=== PATIENT | female | born 1945 | race Caucasian/White ===

== ENCOUNTER 2016-12-20 09:51 | Emergency (ER) | payer OTHER, MEDICARE ==
[2016-12-20] MEDS ORDERED: NS 1,000 ML IV ONE (10:07)
--- NOTE | 2016-12-20 10:07 | EDPHY ---
HPI/HX/ROS/PE/MDM Narrative: CHIEF COMPLAINT: Fall while hiking. HISTORY OF PRESENT ILLNESS: This patient is a non-anticoagulated 71 year old female arriving via EMS complaining of arm pain and head and neck pain secondary to a mechanical fall while hiking this morning. She fell from standing height and stuck out her hands to break her fall. She struck the front of her head on the ground as well. She denies loss of consciousness and remembers the entire event. She has pain in her right arm and fingers, left fingers, left shoulder, and the base of spine. She complains of a burning sensation radiating up her arms. She does have a c-collar in place. No visual changes or diplopia. She has some rib pain but states she bruised her ribs one month ago. No pain with deep inspiration. No abdominal pain. No complaints to legs, knees, ankles. She has not walked since her fall. No fever, chills, chest pain, shortness of breath, palpitations , vomiting, diarrhea, urinary complaints, headache, lightheadedness. REVIEW OF SYSTEMS: Aside from elements discussed in the HPI, a comprehensive 10-point review of systems was reviewed and is negative. PAST MEDICAL HISTORY: Cholecystectomy, Hysterectomy, Breast biopsy, Hip fracture SOCIAL HISTORY: Retired. Lives in [place]. . VITAL SIGNS: Reviewed by me; see NN. GENERAL: Well-developed, well-nourished, in no acute distress. HEENT: Head: Abrasion to left forehead, normocephalic. Face: Abrasion to left zygomatic area. PERRL, EOMI, no nystagmus. Oropharynx: No trauma, normal occlusion. Neck: Lower c-spine tenderness C4-C7, no adenopathy. C-collar in place. CHEST: Nontender, no subcutaneous air palpable. LUNGS: Clear to auscultation bilaterally, breath sounds are equal. CARDIAC: Regular rate and rhythm, no rubs, murmurs or gallops. ABDOMEN: Soft, nontender, nondistended, bowel sounds normal. BACK: No CVA tenderness, no spinal tenderness. No obvious trauma to left scapular area. EXTREMITIES: Abrasions on lateral aspect of left hand 5th and 4th digits, tenderness to palpation. Normal ROM, normal pulses. Abrasions on right hand, swelling across knuckles. Tenderness to right forearm, no obvious deformity. Swelling to distal wrist. PULSES: 2+ and equal throughout. NEURO: Alert and oriented x3, cranial nerves are intact throughout, normal motor , normal sensation. SKIN: Warm and dry, no rash. Portions of this note were transcribed by a clinical specialist medical device. I personally performed a history, physical exam, medical decision making, and confirmed accuracy of information the transcribed note. ED Course: 9:55 Met EMS at bedside. 71 y/o female presents with multiple abrasions and tenderness to the right forearm secondary to a mechanical fall shortly prior to arrival. The patient has lower c-spine tenderness and an abrasion to her forehead. Plan for CT head and cervical spine. Plan for right wrist, forearm, and hand x- ray, left hand x-ray. Plan to administer 1mg IV Dilaudid, 50mcg IV Fentanyl, 1L IV NS. Applied LET to abrasions. No acute osseous abnormalities noted on x-rays. 11:[address] Garrett, radiologist. CT Head and C-spine are negative acute fractures. Please see full report. Patient does have some degenerative disc disease as well as chronic ischemic changes on head CT. 12:21 Reassessed. Continues to complain of burning pain in hands and forearms bilaterally. Plan for MRI c-spine. 14:[address] Garrett, radiologist. MRI negative for acute processes. 14:44 Reassessed patient. Discussed imaging results. Plan to discharge home in good condition. Follow up and return precautions discussed. The patient is comfortable with this plan. MDM: Differential diagnosis of this patient's injury was considered including but not limited to intracranial injury, long bone and pelvic bone fracture, spinal injury, intrathoracic injury, extremity injury, intra-abdominal injury, lacerations, abrasions, and contusions. - Data Points Imaging Results: Imaging Impressions Cervical Spine CT 12/20/16 10:07 Impression: 1. No acute osseous abnormality seen about the cervical spine. 2. Degenerative disk disease mid to lower cervical spine with associated spinal and neuroforaminal stenoses. Findings discussed with Rosa Maria Robert MD at 1129 hour, 12/20/2016. Head CT 12/20/16 10:07 Impression: 1. Mild age-related atrophy. 2. No hemorrhage, mass effect, or definite acute peripheral infarct. 3. Progression of moderate nonspecific hypodensities in the white matter of bilateral cerebral hemispheres. Differential diagnosis includes microvascular ischemic disease, post-infectious/post-inflammatory sequela, atypical demyelinating disease, or migraine-related sequela. Small white matter lacunar infarcts may also have this appearance. 4. 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 Findings discussed with Rosa Maria Robert MD at 11:29 hour, 12/20/2016. If symptoms worsen, additional imaging may be necessary. Forearm X-Ray 12/20/16 10:08 Impression: 1. Marked degenerative changes right first carpometacarpal joint. 2. No acute osseous abnormality is seen about the right wrist and forearm. Hand X-Ray 12/20/16 10:08 Impression: 1. Marked degenerative changes at the first carpometacarpal joint that is symmetric. No acute osseous abnormality seen right or left hand. Hand X-Ray 12/20/16 10:08 Impression: 1. Marked degenerative changes at the first carpometacarpal joint that is symmetric. No acute osseous abnormality seen right or left hand. Wrist X-Ray 12/20/16 10:08 Impression: 1. Marked degenerative changes right first carpometacarpal joint. 2. No acute osseous abnormality is seen about the right wrist and forearm. Cervical Spine MRI 12/20/16 12:22 Impression: 1. 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 2. No acute abnormality seen about the cervical spine. Please see findings at specific disk levels. Findings communicated with the medical office coordinator with Rosa Maria Robert MD at 14 :35 hour, 12/20/2016. Imaging: Discussed imaging studies w/ call center operations manager Radiologist, I viewed and interpreted images myself Medications Given: Discontinued Medications Fentanyl (Sublimaze) 50 mcg IVP EDNOW ONE Stop: 12/20/16 10:19 Last Admin: 12/20/16 10:22 Dose: 100 mcg Gabapentin (Neurontin) 600 mg PO EDNOW ONE Stop: 12/20/16 14:47 Last Admin: 12/20/16 15:23 Dose: 600 mg Hydromorphone HCl (Dilaudid) 1 mg IVP EDNOW ONE Stop: 12/20/16 11:16 Last Admin: 12/20/16 11:33 Dose: 1 mg Hydromorphone HCl (Dilaudid) 1 mg IVP EDNOW ONE Stop: 12/20/16 12:46 Last Admin: 12/20/16 12:47 Dose: 1 mg Sodium Chloride (Ns) 1,000 mls @ 0 mls/hr IV ONCE ONE; Wide Open PRN Reason: Protocol Stop: 12/20/16 10:08 Last Admin: 12/20/16 10:22 Dose: 1,000 mls Ketorolac Tromethamine (Toradol) 30 mg IVP EDNOW ONE Stop: 12/20/16 14:46 Last Admin: 12/20/16 15:25 Dose: 30 mg Tetracaine/Epinephrine/Lidocaine (Let Gel Topical) 2 ea TP EDNOW ONE Stop: 12/20/16 10:12 Last Admin: 12/20/16 10:24 Dose: 1 ea General Initial Vital Signs: Initial Vital Signs Temperature (C) 36.8 C 12/20/16 09:51 Heart Rate 98 12/20/16 09:51 Respiratory Rate 20 12/20/16 09:51 Blood Pressure 179/106 H 12/20/16 09:51 O2 Sat (%) 95 12/20/16 09:51 O2 Delivery Mode Room Air O2 (L/minute) 2 Allergies/Adverse Reactions: iodine [Iodine] Allergy (Verified 04/27/14 19:18) meperidine HCl [From Demerol] Allergy (Verified 04/27/14 23:10) HYPERACTIVITY promethazine HCl [From Phenergan] Allergy (Verified 04/27/14 19:18) almonds Allergy (Intermediate, Uncoded 04/27/14 19:18) Hives Home Medications: Medication Instructions Recorded Ibuprofen [Motrin (*)] 600 mg PO DAILY PRN 02/23/13 QUEtiapine FUMARATE [Seroquel 25 50 mg PO HS 02/23/13 mg (*)] Venlafaxine HCl [Venlafaxine HCl 600 mg PO DAILY 02/23/13 ER] Cholecalciferol (Vitamin D3) 10,000 unit PO DAILY 07/27/14 [Vitamin D3] Valsartan/Hydrochlorothiazide 1 each PO DAILY 08/31/14 [Diovan Hct 160-25 mg Tablet] Nitrofurantoin Macrobid [Macrobid] 100 mg PO BID #10 cap 09/01/14 Gabapentin [Neurontin 300 MG (*)] 300 mg PO HS #7 cap 12/20/16 Departure - Departure Disposition: Home, Routine, Self-Care Clinical Impression: Abrasion, multiple sites, Multiple contusions Cervical strain Qualifiers: Encounter type: initial encounter Qualified Code(s): S16.1XXA - Strain of muscle, fascia and tendon at neck level, initial encounter Condition: Good Instructions: Cervical Strain (ED), Contusion in Adults (ED), Abrasion (ED) Additional Instructions: 1. Follow up with your primary care physician for continued concerns. 2. Mainstay of therapy is rest, pain/anti-inflammatory medication. Use ibuprofen 600 mg every 6-8 hours on a regular basis to provide pain relief and anti-inflammatory effects. 3. Take Gabapentin as prescribed for your burning sensation. 4. Return to the emergency department or seek care urgently if you have worsening pain, weakness, numbness or tingling, headache, or other concerns Referrals: Juju Hernandez MD [Primary Care Provider] - As per Instructions Prescriptions: Gabapentin [Neurontin 300 MG (*)] 300 mg PO HS #7 cap Report Scribed for: Rosa Maria Robert Report Scribed by: Italia Garcia Date of Report: 12/20/16 Time of Report: 12:14
[2016-12-20 10:09] VITALS: RESP 20
[2016-12-20] MEDS ORDERED: LET GEL TOPICAL 1 EA SYR TP ONE (10:11)
[2016-12-20] MEDS ORDERED: fentaNYL 100 MCG/2 ML INJ IVP ONE (10:18)
[2016-12-20] MEDS ORDERED: HYDROmorphONE/DILAUDID 1 MG/ML INJ IVP ONE ×2 (11:15→12:45)
[2016-12-20] MEDS ORDERED: HYDROmorphONE/DILAUDID 1 MG/ML INJ ONE (12:46)
[2016-12-20] MEDS ORDERED: KETOROLAC 30 MG/1 ML SDV IVP ONE (14:45)
[2016-12-20] MEDS ORDERED: GABAPENTIN 300 MG CAP PO ONE (14:46)
[2016-12-20 15:32] VITALS: BP 147/84; PULSE 95; TEMP 98.1; O2SAT 92
== END 2016-12-20 15:54 | disposition home or self-care (01) ==
LOC: EDUNIT#
PROC: 3E0337Z Introduction of Electrolytic and Water Balance Substance into Peripheral Vein, Percutaneous Approach (ICD-10-PCS; principal; 2016-12-20)
DX: S16.1XXA Strain of muscle, fascia and tendon at neck level, initial encounter (principal); S00.81XA Abrasion of other part of head, initial encounter; S60.415A Abrasion of left ring finger, initial encounter; S60.417A Abrasion of left little finger, initial encounter; S60.511A Abrasion of right hand, initial encounter; T14.8XXA Other injury of unspecified body region, initial encounter; E86.9 Volume depletion, unspecified; W18.39XA Other fall on same level, initial encounter; Y99.8 Other external cause status; Y93.01 Activity, walking, marching and hiking
CPT/HCPCS: 70450; 72125; 72141; 73090; 73110; 73130; 96361; 96374; 96375; 96376; 99285; J1170; J1885; J3010

== ENCOUNTER → 2017-12-29 | Outpatient (CLI) | payer OTHER, MEDICARE | LOC: BMCIMAGING 08:49 | PROVIDERS: ATTEND Physician Assistant | DX: M25.512 Pain in left shoulder (principal); M19.012 Primary osteoarthritis, left shoulder; R93.89 Abnormal findings on diagnostic imaging of other specified body structures ==

== ENCOUNTER → 2018-06-18 | Outpatient (CLI) | payer OTHER | LOC: BMCIMAGING 16:51 | PROVIDERS: ATTEND Family Medicine | DX: M54.32 Sciatica, left side (principal) ==

== ENCOUNTER 2018-08-18 09:26 | Inpatient (IN) | payer OTHER | END 2018-08-23 12:30 | LOC: F2W 08-20 18:40 → F2N 08-19 15:05 ==